=== PATIENT | female | born 2000 | race African-American/Black ===

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

== ENCOUNTER 2018-04-04 18:47 | Emergency (ER) | payer MEDICAID ==
[~2018-04-04] VITALS: Ht 170.2 cm; Wt 65.8 kg
[2018-04-04] MEDS ORDERED: ACETAMINOPHEN/CODEINE#3 (300/30mg) TAB PO ONE (21:15)
[2018-04-04] MEDS ORDERED: IBUPROFEN 600 MG TAB PO ONE (21:15)
[2018-04-04 22:06] VITALS: BP 105/57
== END 2018-04-04 23:20 | disposition home or self-care (01) ==
LOC: ER 19:03
DX: S63.501A Unspecified sprain of right wrist, initial encounter (principal); F12.90 Cannabis use, unspecified, uncomplicated; W50.0XXA Accidental hit or strike by another person, initial encounter; Y93.72 Activity, wrestling; Y99.8 Other external cause status; Y92.89 Other specified places as the place of occurrence of the external cause
CPT/HCPCS: 29125; 73110; 73130

== ENCOUNTER 2021-08-29 23:44 | Emergency (ER) | payer MEDICAID ==
[~2021-08-29] VITALS: Ht 170.2 cm; Wt 63.0 kg
[2021-08-29 23:44] VITALS: BP 118/79
== END 2021-08-30 03:25 | disposition left against medical advice (07) ==
LOC: ER 23:44
DX: R05.9 Cough, unspecified (principal); R94.31 Abnormal electrocardiogram [ECG] [EKG]; Z53.21 Procedure and treatment not carried out due to patient leaving prior to being seen by health care provider
CPT/HCPCS: 93005